=== PATIENT | female | born 1940 | race Caucasian/White ===

== ENCOUNTER → 2017-05-26 | Day surgery (SDC) | payer MEDICARE ==
[2017-05-26 07:37] LABS: INR 1.3 (<1.1); Partial Thromboplastin Time 23.2 sec (22.0-30.0)
[2017-05-26 07:58] VITALS: RESP 16; BMI 27.6
[2017-05-26 09:46] VITALS: BP 130/79; PULSE 85; TEMP 97.1
--- NOTE | 2017-05-26 11:42 | MM ---
EXAMINATION TYPE: MG stereo VAD BX LT DATE OF EXAM: 05/26/2017 COMPARISON: Previous mammogram dated 04/18/2017 and 05/01/2017 CLINICAL HISTORY: Abnormal mammogram. TECHNIQUE: Stereotactic guided core biopsy of left breast. FINDINGS: The procedure of stereotactic guided core biopsy was explained to the patient. Benefits, alternatives, and risks were discussed. An informed consent was then obtained. The shortness pathway for biopsy was chosen. Shortness pathway was a CC approach from below approach. I performed the localization, then surgeon, Dr. Feliciano Sewell performed the remainder of the procedure. A vacuum assisted biopsy gun was used to obtain multiple core samples. The patient tolerated the procedure well without any immediate complication. The patient was kept in the radiology department for short stay after the procedure and then discharged home in stable condition. Targeted calcifications are identified in specimen mammogram. Post biopsy mammogram shows the clip to appear in satisfactory position relative to the targeted area of concern on the preprocedure images. IMPRESSION: SUCCESSFUL, UNCOMPLICATED STEREOTACTIC GUIDED CORE BIOPSY OF AREA OF CONCERN IN THE LEFT BREAST, FULL PATHOLOGY RESULTS TO FOLLOW. Pathology Results: High Risk BREAST, LEFT, CORE BIOPSY: INTRADUCTAL PAPILLOMA WITH SCLEROSIS AND CALCIFICATIONS. BACKGROUND FIBROCYSTIC CHANGES INCLUDING CYSTS, FIBROSIS, AND SCLEROSIS ADENOSIS WITH CALCIFICATIONS. Recommendation Surgical consult of the left breast. HALEYD
--- NOTE | 2017-05-28 08:51 | OP ---
Patient is a 76-year-old white female who was seen and evaluated for a mammographic abnormality noted in her left breast. The lesion of concern was a group of indeterminate calcifications in the outer aspect of the left breast below a group of benign-appearing round microcalcifications on the MLO view. These were new from 2015. Stereo biopsy of the calcifications was recommended. Again, these were noted on the MLO view. Benign calcifications were noted in the right breast. The radiographs were reviewed and breast examination was performed. No dominant mass or nodules of concern were noted on breast examination. Patient was taken to the stereotactic biopsy suite. The patient was placed on a Lorad table and from a CC view the area of calcifications was identified. The shortest route was inferior, and the approach was a CC inferior approach. The calcifications were targeted such that no major vessels were in the window where the calcifications could be sampled. Following targeting of the sample, the skin was prepped using Betadine. Lidocaine 1% with epinephrine was used to anesthetize the skin. The target was driven to the correct coordinates, and multiple core biopsies were obtained. This was done after pre-fire and post- fire films were obtained. In the post-fire film, the calcifications appeared to be in the trough of the needle. Needle used was a mammotome 8 gauge needle. The specimen was radiographed and calcifications were noted to be present in the specimen radiograph. Following this, a Mammomark 2 marking clip was placed. Radiographs revealed that this was in the correct location. Patient tolerated the procedure in stable condition. She will follow up with Dr. Wiggins next week. [facility]ATE[facility]
== END ==
LOC: RADMAMWWP 07:14
PROVIDERS: ATTEND Surgery
DX: D24.2 Benign neoplasm of left breast (principal); R92.8 Other abnormal and inconclusive findings on diagnostic imaging of breast; N60.32 Fibrosclerosis of left breast; N60.22 Fibroadenosis of left breast; N64.89 Other specified disorders of breast; Z88.8 Allergy status to other drugs, medicaments and biological substances
CPT/HCPCS: 88305; 85610; 85730; 19081; 36415; A4648